=== PATIENT | male | born 1995 | race Caucasian/White ===

== ENCOUNTER → 2017-03-08 | Outpatient (REF) | payer BC | LOC: M LAB REF 16:59 | PROVIDERS: ATTEND Physician Assistant | DX: J02.9 Acute pharyngitis, unspecified (principal) ==

== ENCOUNTER → 2020-06-22 | Outpatient (REF) | payer BC | LOC: M LAB REF 16:30 | PROVIDERS: ATTEND Physician Assistant | DX: J02.0 Streptococcal pharyngitis (principal) ==